=== PATIENT | male | born 1975 | race Caucasian/White ===

== ENCOUNTER 2017-08-27 09:58 | Emergency (ER) | payer BC, MEDICAID ==
--- NOTE | 2017-08-27 12:15 | UC ---
Complaint Male HPI - HPI Summary HPI Summary: SEVERAL DAYS OF LEFT FLANK PAIN AND NAUSEA. NO FEVER. YESTERDAY MOVED TO LEFT GROIN AND ABDOMEN FEELS BLOATED. ALSO HAS HAD DYSURIA AND FREQUENCY. DENIES ANY PENILE D/C AND STATES NO CHANCE OF STI. - History of Current Complaint Chief Complaint: UCBackPain Stated Complaint: BACK PAIN Time Seen by Provider: 08/27/17 11:48 Hx Obtained From: Patient Onset/Duration: Sudden Onset, Lasting Days, Still Present Timing: Constant Severity Initially: Moderate Severity Currently: Moderate Pain Intensity: 4 Pain Scale Used: 0-10 Numeric Location: Flank - LEFT Radiates to: LFET GROIN Character: Burning Aggravating Factor(s): Nothing Alleviating Factor(s): Nothing Associated Signs And Symptoms: Positive: Dysuria, Nausea. Negative: Fever, Hematuria, Penile Swelling, Penile Discharge - Allergies/Home Medications Allergies/Adverse Reactions: Allergies Allergy/AdvReac Type Severity Reaction Status Date / Time No Known Allergies Allergy Verified 09/30/16 12:12 PMH/Surg Hx/FS Hx/Imm Hx Previously Healthy: Yes - Surgical History Surgical History: Yes Surgery Procedure, Year, and Place: dental - Family History Known Family History: Positive: Hypertension, Diabetes - mother -- DM - Social History Alcohol Use: None Substance Use Type: None Smoking Status (MU): Light Every Day Tobacco Smoker Type: Cigarettes Review of Systems Constitutional: Negative Respiratory: Negative Cardiovascular: Negative Gastrointestinal: Negative Genitourinary: Dysuria, Frequency, Other - LEFT GROIN PAIN Musculoskeletal: Other: - FLANK PAIN All Other Systems Reviewed And Are Negative: Yes Physical Exam Triage Information Reviewed: Yes Appearance: Well-Appearing, No Pain Distress, Well-Nourished Vital Signs: Initial Vital Signs Temp 98.1 F 08/27/17 11:15 Pulse 76 08/27/17 11:15 Resp 18 08/27/17 11:15 BP 114/71 08/27/17 11:15 Pulse Ox 100 08/27/17 11:15 Vital Signs Reviewed: Yes Eyes: Positive: Conjunctiva Clear ENT: Positive: Hearing grossly normal Neck: Positive: Supple Respiratory Exam: Normal Cardiovascular Exam: Normal Abdomen Description: Positive: Nontender, Soft. Negative: CVA Tenderness (R), CVA Tenderness (L), Distended, Guarding Musculoskeletal: Positive: No Edema Neurological: Positive: Alert Psychological: Positive: Age Appropriate Behavior Skin: Negative: rashes UC Physical Exam Vital Signs On Initial Exam: Initial Vitals Temp Pulse Resp BP Pulse Ox 98.1 F 76 18 114/71 100 08/27/17 11:15 08/27/17 11:15 08/27/17 11:15 08/27/17 11:15 08/27/17 11:15 - Genitalia Exam Male Genitalia: Circumcised, Other - NO HERNIA IDENTIFIED Male Genitalia Cont.: Bilateral: Testicles Descended, Testicles Non-Tender, Testicles w/o Swelling, Scrotum Without Erythema Diagnostics - Laboratory Diagnostic Studies Completed/Ordered: URINE DIP UNREMARKABLE - Radiology CT ABD/PELVIS W/O CONTRAST Xray Interpretation: Positive (See Comments) - 1. Negative for obstructive uropathy. Subtle 5 mm calyceal or cortical calcification at the lower pole of the LEFT kidney noted. 2. Normal appendix documented. 3. No acute abdominal pelvic pathologic process evident. Radiology Interpretation Completed By: Radiologist Complaint Male Course/Dx - Differential Dx/Diagnosis Provider Diagnoses: LEFT FLANK PAIN/GROIN PAIN Discharge - Discharge Plan Condition: Stable Disposition: HOME Prescriptions: Ondansetron ODT TAB* [Zofran Odt TAB*] 4 mg PO Q6H PRN #20 tab.odt PRN Reason: Nausea/Vomiting Patient Education Materials: Flank Pain (ED), Groin Pain (ED) Referrals: Chad Santo MD [Primary Care Provider] - If Needed Yo Allen MD [Medical Doctor] - As Soon As Possible Additional Instructions: URINE TEST TODAY WAS NEGATIVE. YOUR CT SCAN DOES NOT SHOW ANYTHING ACUTE THAT EXPLAINS YOUR PAIN. I AM CONCERNED ABOUT YOUR INTERMITTENT TESTICULAR PAIN AND ELEVATION OF YOUR LEFT TESTICLE. CALL UROLOGY TODAY TO SET UP AN APPT [facility]. GO TO THE ER WITHOUT FAIL IF YOU DEVELOP WORSENING PAIN, FEVER, INABILITY TO VOID, BLOOD IN THE URINE OR ANY OTHER CONCERNING SYMPTOMS.
--- NOTE | 2017-08-27 13:10 | RAD ---
INDICATION: LEFT flank and groin pain for 5 days. Pain with urination. Previous hernia repair. COMPARISON: August 01, 2009 testicular ultrasound. TECHNIQUE: Multidetector CT images were obtained from the lung bases to the ischial tuberosities. Evaluation of the viscera is limited without IV contrast. Multiplanar reformation. REPORT: Unremarkable visualized inferior thorax. The 0.7 cm water density well circumscribed lesion at the RIGHT posterior hepatic segment consistent with a hepatic cyst. Unremarkable gallbladder, pancreas, spleen. Negative for CT abnormality of the unopacified upper GI, small bowel, appendix visualized along the medial RIGHT pelvic sidewall, or colon. Negative for ascites, free air. Very small bilateral indirect inguinal hernias without inflammatory change. Normal adrenal glands. Negative for obstructive uropathy. Subtle 5 mm calyceal or cortical calcification at the lower pole of the LEFT kidney noted. Unremarkable ureters, and partially distended urinary bladder. No perinephric or periureteral inflammatory stranding evident. Few pelvic phleboliths noted. Symmetric seminal vesicles. Negative for lymphadenopathy. Normal diameter abdominal aorta and iliac arteries. Physiologic partial distention of the IVC. Bilateral L5 spondylolysis and grade 1-2 L5-S1 anterolisthesis. Advanced L5-S1 disc space narrowing with associated mild vertebral endplate osteophytosis and reactive endplate sclerosis. No suspicious focal osseous lesions evident. IMPRESSION: 1. Negative for obstructive uropathy. Subtle 5 mm calyceal or cortical calcification at the lower pole of the LEFT kidney noted. 2. Normal appendix documented. 3. No acute abdominal pelvic pathologic process evident.
[2017-08-27 13:12] VITALS: BP 102/70
== END 2017-08-27 13:41 | disposition home or self-care (01) ==
LOC: UCEAST 09:58
DX: R10.9 Unspecified abdominal pain (principal); F17.210 Nicotine dependence, cigarettes, uncomplicated
CPT/HCPCS: 74176; 81003; 99212; G0463